=== PATIENT | male | born 1950 | race Hispanic/Latino ===

== ENCOUNTER 2020-01-06 11:16 | Inpatient (IN) | payer MEDICARE ==
[~2020-01-06] VITALS: Ht 157.5 cm; Wt 69.4 kg
[~2020-01-06 11:16] MED LIST: AMMO120C2 TP; ASPI-556 PO; ATOR40TA71 PO; BUSP15TA3 PO; CLOP75TA32 PO; FURO20TA6 PO; GABA-531 PO; IPRA3AMP24 IH; LOSA25TA41 PO; METO25TA6 PO; NYST30C TP; PANT40TA PO; PRED20B PO; SERT100T12 PO; VIT B12
[2020-01-06 12:00] LABS: ABG BASE EXCESS 1.5 mmol/L (-2.0-3.0); ABG HCO3 25.5 mmol/L (21.0-28.0); ABG OXYGEN SATURATION 92.9 % (95.0-99.0); ABG PCO2 38 mmHg (35-48)
[2020-01-06 12:02] LABS: BASOPHILS % (AUTO) 0.5 % (0.0-5.0); EOSINOPHILS % (AUTO) 6.4 % (0.0-8.0); HEMATOCRIT 41.1 % (42-54); LYMPHOCYTES % (AUTO) 17.7 % (21.0-51.0); MEAN CORPUSCULAR HEMOGLOBIN 32.2 pg (27.0-33.0); MEAN CORPUSCULAR HGB CONC 35.5 g/dL (32.0-36.0); MEAN CORPUSCULAR VOLUME 90.5 fL (79-99); MONOCYTES % (AUTO) 5.9 % (3.0-13.0); NEUTROPHILS % (AUTO) 69.3 % (40.0-77.0); PLATELET COUNT (AUTO) 196 K/uL (130-400); RED BLOOD CELL COUNT(AUTO) 4.54 MIL/uL (4.50-6.20); RED CELL DISTRIBUTION WIDTH 12.4 % (11.0-15.5); WHITE BLOOD COUNT (AUTO) 5.6 K/uL (4.8-10.8)
[2020-01-06 12:06] LABS: APPEARANCE,URINE Clear (CLEAR); BILIRUBIN,URINE Negative (NEGATIVE); COLOR,URINE Yellow (YELLOW); GLUCOSE, URINE (UA) Negative (NEGATIVE); KETONES,URINE Negative (NEGATIVE); LEUKOCYTE ESTERASE ,URINE Negative (NEGATIVE); NITRATE,URINE Negative (NEGATIVE); OCCULT BLOOD,URINE Negative (NEGATIVE); PH,URINE 8.5 (5.0-8.0); PROTEIN,URINE Negative (NEGATIVE); UROBILINOGEN,URINE 0.2 mg/dL (0.2-1.0)
[2020-01-06 12:14] LABS: ALBUMIN 3.7 g/dL (3.5-5.0); BILIRUBIN,TOTAL 0.6 mg/dL (0.2-1.0); CREATININE 0.7 mg/dL (0.5-1.5); POTASSIUM 3.5 mmol/L (3.5-5.1); TOTAL PROTEIN, SERUM 7.7 g/dL (6.0-8.3)
[2020-01-06 12:15] LABS: INR 0.96 (0.85-1.15); PARTIAL THROMBOPLASTIN TIME 29.4 SEC (26.3-35.5); PROTHROMBIN TIME 10.4 SEC (9.6-11.6)
[2020-01-06] MEDS ORDERED: ALBUTEROL INHALER 90MCG/INH IH ONE (13:05)
[2020-01-06] MEDS ORDERED: DEXAMETHASONE SOD PHOSPHATE 10MG/ML 1ML VIAL ONE (13:06)
[2020-01-06] MEDS ORDERED: IPRATROPIUM/ALBUTEROL SULFATE 3 ML SOLUTION IH ONE ×4 (13:21→21:45)
[2020-01-06] MEDS ORDERED: METHYLPREDNISOLONE SOD SUCC 40MG/ML 1ML ONE (14:32)
[2020-01-06] MEDS ORDERED: ENOXAPARIN SODIUM 40 MG/0.4 ML SYRINGE SQ ONE (14:32)
[2020-01-06] MEDS ORDERED: LEVOFLOXACIN 500 MG/D5W 100 ML 100 ML ONE (14:32)
[2020-01-06] MEDS ORDERED: PANTOPRAZOLE 40 MG/VIAL ONE (14:33)
[2020-01-06] MEDS: AZITHROMYCIN 500MG+NS 250ML 250 ML IV SCH (14:58)
[2020-01-06] MEDS ORDERED: CEFTRIAXONE SODIUM 1 GM IVP SCH (14:59)
[2020-01-06] MEDS ORDERED: CEFTRIAXONE SODIUM 1 GM ONE (16:06)
[2020-01-06] MEDS ORDERED: AZITHROMYCIN 500MG+NS 250ML 250 ML IV ONE (16:06)
[2020-01-06] MEDS ORDERED: ALBUTEROL INHALER 90MCG/INH IH PRN (18:00)
[2020-01-06 21:10] VITALS: BP 163/79
[2020-01-06] MEDS ORDERED: POTASSIUM CHLORIDE 20 MEQ ERTAB PO SCH (22:25)
[2020-01-06 23:31] VITALS: BP 161/76
[2020-01-07] MEDS: METHYLPREDNISOLONE SOD SUCC 40MG/ML 1ML IVP SCH ×3 (01:39→20:40)
[2020-01-07] MEDS ORDERED: IPRATROPIUM/ALBUTEROL SULFATE 3 ML SOLUTION IH ONE (02:03)
[2020-01-07 03:47] VITALS: BP 143/72
[2020-01-07 04:08] LABS: HEMATOCRIT 36.4 % (42-54); MEAN CORPUSCULAR HEMOGLOBIN 31.9 pg (27.0-33.0); MEAN CORPUSCULAR HGB CONC 35.4 g/dL (32.0-36.0); MEAN CORPUSCULAR VOLUME 90.1 fL (79-99); RED BLOOD CELL COUNT(AUTO) 4.04 MIL/uL (4.50-6.20); RED CELL DISTRIBUTION WIDTH 12.6 % (11.0-15.5); WHITE BLOOD COUNT (AUTO) 10.2 K/uL (4.8-10.8)
[2020-01-07 04:48] LABS: CREATININE 0.7 mg/dL (0.5-1.5); POTASSIUM 4.4 mmol/L (3.5-5.1); THYROID STIMULATING HORMONE 0.87 uIU/mL (0.36-3.74); URIC ACID 3.9 mg/dL (2.6-7.2)
[2020-01-07 09:59] VITALS: BP 146/67
[2020-01-07] MEDS: FAMOTIDINE/PF 20 MG/2 ML VIAL IV SCH (12:00)
[2020-01-07] MEDS: AZITHROMYCIN 500MG+NS 250ML 250 ML IV SCH (12:00)
[2020-01-07] MEDS: ENOXAPARIN SODIUM 40 MG/0.4 ML SYRINGE SQ SCH (12:00)
[2020-01-07 12:14] VITALS: BP 149/67
[2020-01-07] MEDS: IPRATROPIUM/ALBUTEROL SULFATE 3 ML SOLUTION IH PRN ×3 (15:13→23:46)
[2020-01-07 16:57] VITALS: BP 156/73
[2020-01-07 20:08] VITALS: BP 148/58
[2020-01-07] MEDS: CEFTRIAXONE SODIUM 1 GM IVP SCH (20:40)
[2020-01-07] MEDS: HONEY 1 APPL/ML TUBE TP SCH (20:40)
[2020-01-08] VITALS (7 sets, daily range): BP systolic 149–184; BP diastolic 68–81
[2020-01-08 05:48] LABS: HEMATOCRIT 37.4 % (42-54); LYMPHOCYTES % (AUTO) 6.9 % (21.0-51.0); MEAN CORPUSCULAR HGB CONC 34.8 g/dL (32.0-36.0); MEAN CORPUSCULAR VOLUME 92.1 fL (79-99); MONOCYTES % (AUTO) 3.4 % (3.0-13.0); NEUTROPHILS % (AUTO) 89.3 % (40.0-77.0); PLATELET COUNT (AUTO) 188 K/uL (130-400); RED BLOOD CELL COUNT(AUTO) 4.06 MIL/uL (4.50-6.20); RED CELL DISTRIBUTION WIDTH 12.9 % (11.0-15.5); WHITE BLOOD COUNT (AUTO) 11.9 K/uL (4.8-10.8)
[2020-01-08 06:12] LABS: CREATININE 0.7 mg/dL (0.5-1.5); POTASSIUM 4.5 mmol/L (3.5-5.1); THYROID STIMULATING HORMONE 0.91 uIU/mL (0.36-3.74); URIC ACID 3.2 mg/dL (2.6-7.2)
[2020-01-08] MEDS: IPRATROPIUM/ALBUTEROL SULFATE 3 ML SOLUTION IH PRN ×2 (06:55→11:22)
[2020-01-08] MEDS: AZITHROMYCIN 500MG+NS 250ML 250 ML IV SCH (10:59)
[2020-01-08] MEDS: FAMOTIDINE/PF 20 MG/2 ML VIAL IV SCH (11:00)
[2020-01-08] MEDS: METHYLPREDNISOLONE SOD SUCC 40MG/ML 1ML IVP SCH ×2 (11:00→20:54)
[2020-01-08] MEDS: ENOXAPARIN SODIUM 40 MG/0.4 ML SYRINGE SQ SCH (11:02)
[2020-01-08] MEDS: CEFTRIAXONE SODIUM 1 GM IVP SCH (20:53)
[2020-01-09] MEDS: IPRATROPIUM/ALBUTEROL SULFATE 3 ML SOLUTION IH PRN ×3 (00:40→11:54)
[2020-01-09 04:01] VITALS: BP 166/79
[2020-01-09] MEDS: AZITHROMYCIN 500MG+NS 250ML 250 ML IV SCH (08:51)
[2020-01-09] MEDS: METHYLPREDNISOLONE SOD SUCC 40MG/ML 1ML IVP SCH (08:51)
[2020-01-09] MEDS: FAMOTIDINE/PF 20 MG/2 ML VIAL IV SCH (08:51)
[2020-01-09 08:52] VITALS: BP 189/70
[2020-01-09] MEDS: ENOXAPARIN SODIUM 40 MG/0.4 ML SYRINGE SQ SCH (08:52)
[2020-01-09] MEDS ORDERED: LEVO500T89 PO (12:23)
[2020-01-09 12:29] VITALS: BP 183/61
[2020-01-09] MEDS: HONEY 1 APPL/ML TUBE TP SCH (14:54)
== END 2020-01-09 16:00 | disposition home or self-care (01) | DRG 190 ==
LOC: EDH 11:16 → EDHIP 14:11 → 3BH 20:21
PROVIDERS: ADMIT Internal Medicine Nephrology; ATTEND Internal Medicine Nephrology
DX: J44.0 Chronic obstructive pulmonary disease with (acute) lower respiratory infection (principal); J18.9 Pneumonia, unspecified organism; E87.1 Hypo-osmolality and hyponatremia; L97.919 Non-pressure chronic ulcer of unspecified part of right lower leg with unspecified severity; J44.1 Chronic obstructive pulmonary disease with (acute) exacerbation; F17.200 Nicotine dependence, unspecified, uncomplicated; I99.9 Unspecified disorder of circulatory system; I87.2 Venous insufficiency (chronic) (peripheral); E78.5 Hyperlipidemia, unspecified; I11.0 Hypertensive heart disease with heart failure; I50.9 Heart failure, unspecified; E11.622 Type 2 diabetes mellitus with other skin ulcer; F17.210 Nicotine dependence, cigarettes, uncomplicated; E78.00 Pure hypercholesterolemia, unspecified; E11.51 Type 2 diabetes mellitus with diabetic peripheral angiopathy without gangrene; Z20.828 Contact with and (suspected) exposure to other viral communicable diseases; Z71.6 Tobacco abuse counseling
CPT/HCPCS: 36415; 36600; 71045; 80048; 80053; 81003; 82550; 82803; 84443; 84484; 84550; 85025; 85027; 85610; 85730; 87040; 87426; 87804; 93005; 94640; 97039; C9113; G0378; J0456; J0696; J1100; J1650; J1956; J2920; J3490; U0003

== ENCOUNTER 2020-08-05 19:02 | Inpatient (IN) | payer MEDICARE ==
[~2020-08-05] VITALS: Ht 172.7 cm; Wt 65.1 kg
[~2020-08-05 19:02] MED LIST changes: +LEVO500T89 PO; +SERT-440 PO; -SERT100T12 PO
[2020-08-05 19:05] VITALS: BP 112/69
[2020-08-05] MEDS ORDERED: IPRATROPIUM/ALBUTEROL SULFATE 3 ML SOLUTION IH SCH (19:30)
[2020-08-05] MEDS ORDERED: SOLU-MEDROL 125MG VIAL IVP ONE (19:30)
[2020-08-05] MEDS ORDERED: ACETAMINOPHEN 160 MG/5ML UDCUP PO ONE (19:30)
[2020-08-05 20:02] LABS: BASOPHILS % (AUTO) 0.7 % (0.0-5.0); EOSINOPHILS % (AUTO) 2.2 % (0.0-8.0); HEMATOCRIT 36.3 % (42-54); LYMPHOCYTES % (AUTO) 6.3 % (21.0-51.0); MEAN CORPUSCULAR HEMOGLOBIN 30.8 pg (27.0-33.0); MEAN CORPUSCULAR HGB CONC 33.9 g/dL (32.0-36.0); MONOCYTES % (AUTO) 9.8 % (3.0-13.0); NEUTROPHILS % (AUTO) 80.6 % (40.0-77.0); PLATELET COUNT (AUTO) 368 K/uL (130-400); RED BLOOD CELL COUNT(AUTO) 3.99 MIL/uL (4.50-6.20); RED CELL DISTRIBUTION WIDTH 12.5 % (11.0-15.5); WHITE BLOOD COUNT (AUTO) 9.4 K/uL (4.8-10.8)
[2020-08-05] MEDS ORDERED: ACETAMINOPHEN 650 MG/20.3 ML UDCUP ONE (20:05)
[2020-08-05 20:10] LABS: CREATININE 1.1 mg/dL (0.5-1.5); POTASSIUM 4.4 mmol/L (3.5-5.1)
[2020-08-05 20:14] LABS: ALBUMIN 2.9 g/dL (3.5-5.0); BILIRUBIN,TOTAL 0.3 mg/dL (0.2-1.0); TOTAL PROTEIN, SERUM 7.4 g/dL (6.0-8.3)
[2020-08-05 20:15] LABS: INR 1.05 (0.85-1.15); PROTHROMBIN TIME 11.4 SEC (9.6-11.6)
[2020-08-05 20:17] LABS: PARTIAL THROMBOPLASTIN TIME 32.2 SEC (26.3-35.5)
[2020-08-05 20:34] LABS: B-TYPE NATRIURETIC PEPTIDE 98 pg/mL (0-100)
[2020-08-05] MEDS ORDERED: LEVOFLOXACIN 500 MG/D5W 100 ML 100 ML IV ONE (20:45)
[2020-08-05 20:53] LABS: ABG BASE EXCESS 2.2 mmol/L (-2.0-3.0); ABG HCO3 25.5 mmol/L (21.0-28.0); ABG OXYGEN SATURATION 92.9 % (95.0-99.0); ABG PCO2 36 mmHg (35-48)
[2020-08-05 21:05] VITALS: BP 147/82
[2020-08-05] MEDS ORDERED: ACETAMINOPHEN 650 MG SUPPOSITORY RC PRN (22:45)
[2020-08-05] MEDS ORDERED: ONDANSETRON 4MG INJ IVP PRN (22:45)
[2020-08-06] VITALS (10 sets, daily range): BP systolic 100–162; BP diastolic 60–78
[2020-08-06] MEDS: IPRATROPIUM/ALBUTEROL SULFATE 3 ML SOLUTION IH PRN ×2 (02:35→18:57)
[2020-08-06 03:32] LABS: APPEARANCE,URINE Clear (CLEAR); BILIRUBIN,URINE Negative (NEGATIVE); COLOR,URINE Yellow (YELLOW); GLUCOSE, URINE (UA) Negative (NEGATIVE); KETONES,URINE Negative (NEGATIVE); LEUKOCYTE ESTERASE ,URINE Negative (NEGATIVE); NITRATE,URINE Negative (NEGATIVE); OCCULT BLOOD,URINE Negative (NEGATIVE); PROTEIN,URINE Negative (NEGATIVE); UROBILINOGEN,URINE 0.2 mg/dL (0.2-1.0)
[2020-08-06 06:46] LABS: BASOPHILS % (AUTO) 0.2 % (0.0-5.0); HEMATOCRIT 31.2 % (42-54); LYMPHOCYTES % (AUTO) 4.9 % (21.0-51.0); MEAN CORPUSCULAR HEMOGLOBIN 31.7 pg (27.0-33.0); MEAN CORPUSCULAR HGB CONC 34.9 g/dL (32.0-36.0); MEAN CORPUSCULAR VOLUME 90.7 fL (79-99); MONOCYTES % (AUTO) 1.8 % (3.0-13.0); NEUTROPHILS % (AUTO) 92.7 % (40.0-77.0); PLATELET COUNT (AUTO) 307 K/uL (130-400); RED BLOOD CELL COUNT(AUTO) 3.44 MIL/uL (4.50-6.20); RED CELL DISTRIBUTION WIDTH 12.4 % (11.0-15.5); WHITE BLOOD COUNT (AUTO) 5.6 K/uL (4.8-10.8)
[2020-08-06 07:09] LABS: ALBUMIN 2.4 g/dL (3.5-5.0); PHOSPHORUS 3.6 mg/dL (2.5-4.9); POTASSIUM 4.1 mmol/L (3.5-5.1)
[2020-08-06 07:18] LABS: BILIRUBIN,TOTAL 0.1 mg/dL (0.2-1.0); MAGNESIUM 1.7 mg/dL (1.80-2.40); THYROID STIMULATING HORMONE 1.44 uIU/mL (0.36-3.74); TOTAL PROTEIN, SERUM 6.5 g/dL (6.0-8.3); URIC ACID 8.6 mg/dL (2.6-7.2)
[2020-08-06] MEDS ORDERED: TAMS-1 PO (07:57)
[2020-08-06] MEDS ORDERED: GABA300S PO (07:57)
[2020-08-06] MEDS ORDERED: HYDR-3421 PO (07:57)
[2020-08-06] MEDS ORDERED: FURO40TA5 PO (07:57)
[2020-08-06] MEDS ORDERED: FLUT110HFA IH (08:14)
[2020-08-06] MEDS ORDERED: LEVOFLOXACIN 500 MG/D5W 100 ML 100 ML IV SCH (09:00)
[2020-08-06] MEDS: PANTOPRAZOLE 40 MG/VIAL IVP SCH (09:31)
[2020-08-06] MEDS: SOLU-MEDROL 40MG VIAL IVP SCH ×2 (09:32→21:07)
[2020-08-06] MEDS ORDERED: TRAMADOL HCL 50 MG TABLET ONE (09:43)
[2020-08-06] MEDS ORDERED: AZITHROMYCIN 500MG VIAL IVPB SCH (21:30)
[2020-08-06] MEDS ORDERED: 0.9% NACL 250ML IVPB SCH (21:30)
[2020-08-06] MEDS ORDERED: PHARMACY COMMUNICATION MISC SCH (22:00)
[2020-08-07] MEDS: AZITHROMYCIN 500MG+NS 250ML 250 ML IV SCH ×2 (00:18→20:13)
[2020-08-07 04:22] VITALS: BP 120/69
[2020-08-07] MEDS: IPRATROPIUM/ALBUTEROL SULFATE 3 ML SOLUTION IH PRN ×3 (06:56→21:05)
[2020-08-07 07:57] VITALS: BP 119/60
[2020-08-07] MEDS: PANTOPRAZOLE 40 MG/VIAL IVP SCH (10:02)
[2020-08-07] MEDS: SOLU-MEDROL 40MG VIAL IVP SCH ×2 (10:02→20:13)
[2020-08-07 11:00] VITALS: BP 151/63
[2020-08-07] MEDS: NICOTINE 14 MG/ 24 HR PATCH TD SCH (11:54)
[2020-08-07 16:00] VITALS: BP 127/60
[2020-08-07 20:07] VITALS: BP 140/70
[2020-08-07] MEDS: TRAMADOL HCL 50 MG TABLET PO PRN (20:13)
[2020-08-08] VITALS (8 sets, daily range): BP systolic 119–149; BP diastolic 50–79
[2020-08-08 04:35] LABS: HEMATOCRIT 30.1 % (42-54); MEAN CORPUSCULAR HEMOGLOBIN 31.3 pg (27.0-33.0); MEAN CORPUSCULAR HGB CONC 33.9 g/dL (32.0-36.0); MEAN CORPUSCULAR VOLUME 92.3 fL (79-99); RED BLOOD CELL COUNT(AUTO) 3.26 MIL/uL (4.50-6.20); RED CELL DISTRIBUTION WIDTH 12.6 % (11.0-15.5); WHITE BLOOD COUNT (AUTO) 6.6 K/uL (4.8-10.8)
[2020-08-08 04:58] LABS: CREATININE 0.6 mg/dL (0.5-1.5); POTASSIUM 4.2 mmol/L (3.5-5.1)
[2020-08-08] MEDS: PANTOPRAZOLE 40 MG/VIAL IVP SCH (09:22)
[2020-08-08] MEDS: SOLU-MEDROL 40MG VIAL IVP SCH (09:22)
[2020-08-08] MEDS: TRAMADOL HCL 50 MG TABLET PO PRN ×2 (09:47→20:03)
[2020-08-08] MEDS: NICOTINE 14 MG/ 24 HR PATCH TD SCH (13:31)
[2020-08-08] MEDS: IPRATROPIUM/ALBUTEROL SULFATE 3 ML SOLUTION IH PRN ×2 (18:44→22:09)
[2020-08-08] MEDS: AZITHROMYCIN 500MG+NS 250ML 250 ML IV SCH (20:03)
[2020-08-08] MEDS: BUSPIRONE HCL 5 MG TABLET PO SCH (20:03)
[2020-08-08] MEDS ORDERED: SOLU-MEDROL 40MG VIAL IVP ONE (21:00)
[2020-08-09] MEDS: IPRATROPIUM/ALBUTEROL SULFATE 3 ML SOLUTION IH PRN ×2 (02:43→06:16)
[2020-08-09 03:40] VITALS: BP 141/57
[2020-08-09 05:00] LABS: HEMATOCRIT 32.3 % (42-54); MEAN CORPUSCULAR HEMOGLOBIN 31.4 pg (27.0-33.0); MEAN CORPUSCULAR HGB CONC 33.1 g/dL (32.0-36.0); MEAN CORPUSCULAR VOLUME 94.7 fL (79-99); RED BLOOD CELL COUNT(AUTO) 3.41 MIL/uL (4.50-6.20); RED CELL DISTRIBUTION WIDTH 12.6 % (11.0-15.5); WHITE BLOOD COUNT (AUTO) 5.7 K/uL (4.8-10.8)
[2020-08-09 05:20] LABS: CREATININE 0.8 mg/dL (0.5-1.5); MAGNESIUM 1.7 mg/dL (1.80-2.40); PHOSPHORUS 2.9 mg/dL (2.5-4.9); POTASSIUM 3.9 mmol/L (3.5-5.1)
[2020-08-09 08:00] VITALS: BP 123/51
[2020-08-09] MEDS: BUSPIRONE HCL 5 MG TABLET PO SCH ×2 (09:14→20:13)
[2020-08-09] MEDS: NICOTINE 14 MG/ 24 HR PATCH TD SCH (09:15)
[2020-08-09] MEDS: PREDNISONE 20 MG TABLET PO SCH (09:15)
[2020-08-09] MEDS: PANTOPRAZOLE 40 MG/VIAL IVP SCH (09:15)
[2020-08-09] MEDS: TRAMADOL HCL 50 MG TABLET PO PRN ×2 (09:43→23:52)
[2020-08-09 12:00] VITALS: BP 141/66
[2020-08-09 16:00] VITALS: BP 166/58
[2020-08-09 20:53] VITALS: BP 163/79
[2020-08-09] MEDS: AZITHROMYCIN 500MG+NS 250ML 250 ML IV SCH (22:04)
[2020-08-10] VITALS (8 sets, daily range): BP systolic 111–173; BP diastolic 60–75
[2020-08-10] MEDS ORDERED: HYDROMORPHONE 0.5 MG SYG (0.5MG/0.5ML) ONE (03:29)
[2020-08-10] MEDS: HYDROMORPHONE 0.5 MG SYG (0.5MG/0.5ML) IVP PRN (03:31)
[2020-08-10 05:18] LABS: HEMATOCRIT 33.7 % (42-54); MEAN CORPUSCULAR HEMOGLOBIN 31.1 pg (27.0-33.0); MEAN CORPUSCULAR HGB CONC 34.1 g/dL (32.0-36.0); MEAN CORPUSCULAR VOLUME 91.1 fL (79-99); PLATELET COUNT (AUTO) 345 K/uL (130-400); RED CELL DISTRIBUTION WIDTH 12.5 % (11.0-15.5)
[2020-08-10 05:25] LABS: CREATININE 0.6 mg/dL (0.5-1.5); MAGNESIUM 1.6 mg/dL (1.80-2.40); PHOSPHORUS 2.4 mg/dL (2.5-4.9); POTASSIUM 3.1 mmol/L (3.5-5.1)
[2020-08-10 06:07] LABS: BAND NEUTROPHILS % (MANUAL) 1 % (0-2); LYMPHOCYTES % (MANUAL) 16 % (22-44); MAN.DIFF COMMENT-IMPRESSION MANUAL DIFFERENTIAL; MONOCYTES % (MANUAL) 7 % (2-9); SEGMENTED NEUTROPHILS % 76 % (40-70)
[2020-08-10 06:08] LABS: PLATELET MORPHOLOGY COMMENT ADEQUATE
[2020-08-10] MEDS: IPRATROPIUM/ALBUTEROL SULFATE 3 ML SOLUTION IH PRN (07:04)
[2020-08-10] MEDS: NICOTINE 14 MG/ 24 HR PATCH TD SCH (10:11)
[2020-08-10] MEDS: PANTOPRAZOLE 40 MG/VIAL IVP SCH (10:11)
[2020-08-10] MEDS: PREDNISONE 20 MG TABLET PO SCH (10:12)
[2020-08-10] MEDS: BUSPIRONE HCL 5 MG TABLET PO SCH ×2 (10:12→19:49)
[2020-08-10] MEDS: TRAMADOL HCL 50 MG TABLET PO PRN (10:12)
[2020-08-10] MEDS: ACETAMINOPHEN 325 MG TAB PO PRN (13:38)
[2020-08-10] MEDS ORDERED: KCL 20 MEQ ERTAB PO ONE (16:39)
[2020-08-10] MEDS ORDERED: MAGNESIUM 2GM PREMIX 50ML 50 ML IV ONE (16:40)
[2020-08-10] MEDS ORDERED: POTASSIUM CHLORIDE 20MEQ/100ML 100 ML IV PRN (17:00)
[2020-08-10] MEDS ORDERED: LIDOCAINE HCL-MPF 1% 2ML VIAL IV PRN (17:00)
[2020-08-10] MEDS ORDERED: POTASSIUM CHLORIDE 10% ELIXIR 20 MEQ/15 ML UDCUP PO PRN (17:00)
[2020-08-10] MEDS ORDERED: MAGNESIUM 2GM PREMIX 50ML 50 ML IV SCH (17:00)
[2020-08-10] MEDS: KCL 20 MEQ ERTAB PO PRN ×3 (18:55→19:50)
[2020-08-10] MEDS: AZITHROMYCIN 500MG+NS 250ML 250 ML IV SCH (21:16)
[2020-08-11] MEDS: HYDROMORPHONE 0.5 MG SYG (0.5MG/0.5ML) IVP PRN ×3 (01:52→20:41)
[2020-08-11 03:00] VITALS: BP 125/74
[2020-08-11 04:05] LABS: HEMATOCRIT 32.4 % (42-54); MEAN CORPUSCULAR HEMOGLOBIN 30.9 pg (27.0-33.0); MEAN CORPUSCULAR VOLUME 93.6 fL (79-99); PLATELET COUNT (AUTO) 326 K/uL (130-400); RED BLOOD CELL COUNT(AUTO) 3.46 MIL/uL (4.50-6.20); RED CELL DISTRIBUTION WIDTH 12.6 % (11.0-15.5); WHITE BLOOD COUNT (AUTO) 6.5 K/uL (4.8-10.8)
[2020-08-11 04:22] LABS: CREATININE 0.6 mg/dL (0.5-1.5); MAGNESIUM 1.8 mg/dL (1.80-2.40); PHOSPHORUS 2.9 mg/dL (2.5-4.9); POTASSIUM 3.9 mmol/L (3.5-5.1)
[2020-08-11 05:23] LABS: BAND NEUTROPHILS % (MANUAL) 2 % (0-2); EOSINOPHILS % (MANUAL) 1 % (1-6); LYMPHOCYTES % (MANUAL) 9 % (22-44); MAN.DIFF COMMENT-IMPRESSION MANUAL DIFFERENTIAL; MONOCYTES % (MANUAL) 4 % (2-9); REACTIVE LYMPHOCYTES 3 % (0-0); SEGMENTED NEUTROPHILS % 81 % (40-70)
[2020-08-11] MEDS: PANTOPRAZOLE 40 MG/VIAL IVP SCH (07:59)
[2020-08-11] MEDS: TRAMADOL HCL 50 MG TABLET PO PRN ×2 (08:01→19:07)
[2020-08-11] MEDS: BUSPIRONE HCL 5 MG TABLET PO SCH ×2 (08:01→20:35)
[2020-08-11] MEDS: PREDNISONE 20 MG TABLET PO SCH (08:02)
[2020-08-11 08:19] VITALS: BP 151/78
[2020-08-11] MEDS: NICOTINE 14 MG/ 24 HR PATCH TD SCH (09:55)
[2020-08-11 11:29] VITALS: BP 159/71
[2020-08-11] MEDS: ACETAMINOPHEN 325 MG TAB PO PRN (13:32)
[2020-08-11 17:22] VITALS: BP 152/71
[2020-08-11 19:48] VITALS: BP 176/58
[2020-08-11] MEDS: IPRATROPIUM/ALBUTEROL SULFATE 3 ML SOLUTION IH PRN (20:02)
[2020-08-11] MEDS: AZITHROMYCIN 500MG+NS 250ML 250 ML IV SCH (20:34)
[2020-08-11 23:41] VITALS: BP 169/76
[2020-08-12 04:27] VITALS: BP 127/69
[2020-08-12 08:29] VITALS: BP 136/61
[2020-08-12] MEDS: PREDNISONE 20 MG TABLET PO SCH (10:30)
[2020-08-12] MEDS: TRAMADOL HCL 50 MG TABLET PO PRN ×2 (10:30→20:07)
[2020-08-12] MEDS: BUSPIRONE HCL 5 MG TABLET PO SCH ×2 (10:30→20:08)
[2020-08-12] MEDS: PANTOPRAZOLE 40 MG/VIAL IVP SCH (10:30)
[2020-08-12] MEDS: NICOTINE 14 MG/ 24 HR PATCH TD SCH (10:31)
[2020-08-12 11:17] VITALS: BP 121/64
[2020-08-12 16:13] VITALS: BP 131/65
[2020-08-12 19:51] VITALS: BP 103/67
[2020-08-12] MEDS: AZITHROMYCIN 500MG+NS 250ML 250 ML IV SCH (20:08)
[2020-08-12] MEDS: IPRATROPIUM/ALBUTEROL SULFATE 3 ML SOLUTION IH PRN (20:31)
[2020-08-12 23:47] VITALS: BP 148/74
[2020-08-13 04:28] VITALS: BP 146/74
[2020-08-13 08:00] VITALS: BP 125/72
[2020-08-13] MEDS: PREDNISONE 20 MG TABLET PO SCH (09:18)
[2020-08-13] MEDS: BUSPIRONE HCL 5 MG TABLET PO SCH (09:18)
[2020-08-13] MEDS: TRAMADOL HCL 50 MG TABLET PO PRN (09:18)
[2020-08-13] MEDS: NICOTINE 14 MG/ 24 HR PATCH TD SCH (09:18)
[2020-08-13] MEDS: PANTOPRAZOLE 40 MG/VIAL IVP SCH (09:18)
[2020-08-13] MEDS ORDERED: HYDR-4060 PO (09:20)
[2020-08-13] MEDS ORDERED: PRED20TA3 PO (12:06)
[2020-08-13] MEDS ORDERED: AZIT500T4 PO (12:06)
== END 2020-08-13 15:13 | disposition home health service (06) | DRG 193 ==
LOC: EDH 19:02 → EDHIP 20:00 → 4BH 08-06 15:20 → EDHIP 08-06 16:56 → 4BH 08-06 21:52
PROVIDERS: ADMIT Internal Medicine Nephrology; ATTEND Internal Medicine Nephrology
DX: J18.9 Pneumonia, unspecified organism (principal); I46.9 Cardiac arrest, cause unspecified; R65.11 Systemic inflammatory response syndrome (SIRS) of non-infectious origin with acute organ dysfunction; J44.0 Chronic obstructive pulmonary disease with (acute) lower respiratory infection; E87.1 Hypo-osmolality and hyponatremia; J44.1 Chronic obstructive pulmonary disease with (acute) exacerbation; N17.9 Acute kidney failure, unspecified; I44.1 Atrioventricular block, second degree; E11.51 Type 2 diabetes mellitus with diabetic peripheral angiopathy without gangrene; I50.9 Heart failure, unspecified; E78.5 Hyperlipidemia, unspecified; F10.10 Alcohol abuse, uncomplicated; I89.0 Lymphedema, not elsewhere classified; Z72.0 Tobacco use; Z79.899 Other long term (current) drug therapy; Z79.02 Long term (current) use of antithrombotics/antiplatelets; Z95.5 Presence of coronary angioplasty implant and graft; I25.10 Atherosclerotic heart disease of native coronary artery without angina pectoris; R09.02 Hypoxemia; R94.4 Abnormal results of kidney function studies; R00.1 Bradycardia, unspecified; R53.81 Other malaise; N28.9 Disorder of kidney and ureter, unspecified
CPT/HCPCS: 36415; 36600; 71045; 80048; 80053; 81003; 82550; 82803; 82948; 83605; 83735; 83880; 84100; 84443; 84484; 84550; 85025; 85027; 85610; 85730; 87040; 87804; 93005; 93970; 94640; 94664; 94760; 97039; C9113; G0378; J0456; J1170; J1956; J2920; J2930; J3475

== ENCOUNTER 2020-10-30 16:06 | Inpatient (IN) | payer MEDICARE ==
[~2020-10-30] VITALS: Ht 172.7 cm; Wt 66.5 kg
[~2020-10-30 16:06] MED LIST changes: +AZIT500T4 PO; +FLUT110HFA IH; -FURO20TA6 PO; +FURO40TA5 PO; -GABA-531 PO; +GABA300S PO; +HYDR-3421 PO; +HYDR-4060 PO; -IPRA3AMP24 IH; -LEVO500T89 PO; -NYST30C TP; -PANT40TA PO; -PRED20B PO; +PRED20TA3 PO; +TAMS-1 PO
[2020-10-30 16:16] VITALS: BP 151/82
[2020-10-30] MEDS ORDERED: IPRATROPIUM/ALBUTEROL SULFATE 3 ML SOLUTION IH ONE (16:30)
[2020-10-30] MEDS ORDERED: ALBUTEROL 0.083% 2.5 MG/3 ML INH IH ONE (16:47)
[2020-10-30 16:57] LABS: BASOPHILS % (AUTO) 0.6 % (0.0-5.0); EOSINOPHILS % (AUTO) 1.6 % (0.0-8.0); LYMPHOCYTES % (AUTO) 5.7 % (21.0-51.0); MEAN CORPUSCULAR HEMOGLOBIN 30.3 pg (27.0-33.0); MEAN CORPUSCULAR HGB CONC 34.6 g/dL (32.0-36.0); MEAN CORPUSCULAR VOLUME 87.7 fL (79-99); NEUTROPHILS % (AUTO) 84.7 % (40.0-77.0); PLATELET COUNT (AUTO) 429 K/uL (130-400); RED BLOOD CELL COUNT(AUTO) 4.22 MIL/uL (4.50-6.20); RED CELL DISTRIBUTION WIDTH 14.3 % (11.0-15.5); WHITE BLOOD COUNT (AUTO) 13.4 K/uL (4.8-10.8)
[2020-10-30 17:17] LABS: CREATININE 0.8 mg/dL (0.5-1.5); POTASSIUM 3.2 mmol/L (3.5-5.1)
[2020-10-30 17:18] LABS: B-TYPE NATRIURETIC PEPTIDE 145 pg/mL (0-100)
[2020-10-30 17:19] LABS: ALBUMIN 2.1 g/dL (3.5-5.0); BILIRUBIN,TOTAL 0.2 mg/dL (0.2-1.0); CRP QUANTITATIVE 37.7 mg/L (0.00-9.0); TOTAL PROTEIN, SERUM 6.9 g/dL (6.0-8.3)
[2020-10-30] MEDS ORDERED: POTASSIUM BICARB/CIT AC 25 MEQ TABLET.EFF PO ONE (17:30)
[2020-10-30] MEDS ORDERED: CEFTRIAXONE 1G VIAL IVP ONE (17:30)
[2020-10-30] MEDS ORDERED: FLUCONAZOLE 100 MG TAB PO ONE (18:00)
[2020-10-30 18:28] VITALS: BP 176/68
[2020-10-30] MEDS ORDERED: CEFTRIAXONE 1G VIAL ONE (18:44)
[2020-10-30] MEDS ORDERED: POTASSIUM BICARB/CIT AC 25 MEQ TABLET.EFF ONE (18:44)
[2020-10-30] MEDS ORDERED: ONDANSETRON 4MG INJ IVP PRN (19:00)
[2020-10-30] MEDS ORDERED: KCL 20 MEQ ERTAB PO PRN (19:00)
[2020-10-30 19:39] VITALS: BP 176/82
[2020-10-30] MEDS ORDERED: NITR0.4T50 SL (20:14)
[2020-10-30] MEDS ORDERED: FUROSEMIDE 40MG VIAL ONE (20:50)
[2020-10-30] MEDS: 0.9%NACL 50ML 50 ML IV SCH (20:55)
[2020-10-30] MEDS: SOLU-MEDROL 40MG VIAL IVP SCH (20:55)
[2020-10-30] MEDS: ZOSYN 3.375GM +NS 50ML IV SCH (20:55)
[2020-10-30] MEDS: GABAPENTIN 300 MG CAPSULE PO SCH (20:55)
[2020-10-30] MEDS: FUROSEMIDE 40MG VIAL IV SCH (21:08)
[2020-10-30] MEDS: BUSPIRONE HCL 5 MG TABLET PO SCH (21:08)
[2020-10-30] MEDS ORDERED: AMLODIPINE 5 MG TAB PO ONE (21:30)
[2020-10-30] MEDS: AZITHROMYCIN 500MG+NS 250ML IV SCH (21:49)
[2020-10-30] MEDS: 0.9% NACL 250ML 250 ML IV SCH (21:49)
[2020-10-30 22:25] VITALS: BP 156/55
[2020-10-31] VITALS (8 sets, daily range): BP systolic 104–166; BP diastolic 42–75
[2020-10-31] MEDS: ZOSYN 3.375GM +NS 50ML IV SCH ×3 (04:01→18:00)
[2020-10-31] MEDS: 0.9%NACL 50ML 50 ML IV SCH ×3 (04:02→18:00)
[2020-10-31 06:30] LABS: BASOPHILS % (AUTO) 0.1 % (0.0-5.0); EOSINOPHILS % (AUTO) 1.9 % (0.0-8.0); HEMATOCRIT 35.7 % (42-54); LYMPHOCYTES % (AUTO) 7.2 % (21.0-51.0); MEAN CORPUSCULAR HEMOGLOBIN 29.8 pg (27.0-33.0); MEAN CORPUSCULAR HGB CONC 33.3 g/dL (32.0-36.0); MEAN CORPUSCULAR VOLUME 89.3 fL (79-99); MONOCYTES % (AUTO) 1.1 % (3.0-13.0); NEUTROPHILS % (AUTO) 89.3 % (40.0-77.0); PLATELET COUNT (AUTO) 396 K/uL (130-400); RED CELL DISTRIBUTION WIDTH 14.6 % (11.0-15.5); WHITE BLOOD COUNT (AUTO) 7.9 K/uL (4.8-10.8)
[2020-10-31 06:54] LABS: ALBUMIN 1.9 g/dL (3.5-5.0); BILIRUBIN,TOTAL 0.2 mg/dL (0.2-1.0); CREATININE 1.1 mg/dL (0.5-1.5); MAGNESIUM 1.4 mg/dL (1.80-2.40); PHOSPHORUS 4.1 mg/dL (2.5-4.9); POTASSIUM 4.4 mmol/L (3.5-5.1); THYROID STIMULATING HORMONE 1.09 uIU/mL (0.36-3.74); TOTAL PROTEIN, SERUM 6.4 g/dL (6.0-8.3); URIC ACID 9.8 mg/dL (2.6-7.2)
[2020-10-31] MEDS: METOPROLOL TARTRATE 25 MG TAB PO SCH (08:40)
[2020-10-31] MEDS: ENOXAPARIN SODIUM 40 MG/0.4 ML SYRINGE SQ SCH (08:40)
[2020-10-31] MEDS: PANTOPRAZOLE 40 MG TAB DR PO SCH (08:40)
[2020-10-31] MEDS: SOLU-MEDROL 40MG VIAL IVP SCH ×2 (08:40→21:57)
[2020-10-31] MEDS: ASPIRIN 81 MG EC TAB PO SCH (08:40)
[2020-10-31] MEDS: CLOPIDOGREL 75MG TAB PO SCH (08:40)
[2020-10-31] MEDS: GABAPENTIN 300 MG CAPSULE PO SCH ×2 (08:40→21:00)
[2020-10-31] MEDS: FUROSEMIDE 40MG VIAL IV SCH ×2 (08:40→21:56)
[2020-10-31] MEDS: BUSPIRONE HCL 5 MG TABLET PO SCH ×2 (08:40→21:57)
[2020-10-31] MEDS: ALBUTEROL 0.042% 1.25MG/3ML IH SCH ×2 (21:53→21:54)
[2020-10-31] MEDS: AZITHROMYCIN 500MG+NS 250ML IV SCH (21:56)
[2020-10-31] MEDS: 0.9% NACL 250ML 250 ML IV SCH (21:56)
[2020-11-01] VITALS (8 sets, daily range): BP systolic 101–144; BP diastolic 52–74
[2020-11-01] MEDS: ZOSYN 3.375GM +NS 50ML IV SCH ×3 (00:48→18:05)
[2020-11-01] MEDS: 0.9%NACL 50ML 50 ML IV SCH ×3 (00:49→18:05)
[2020-11-01] MEDS: ALBUTEROL 0.042% 1.25MG/3ML IH SCH ×4 (01:47→14:20)
[2020-11-01] MEDS: ACETAMINOPHEN 325 MG TAB PO PRN (04:17)
[2020-11-01 06:18] LABS: BASOPHILS % (AUTO) 0.1 % (0.0-5.0); EOSINOPHILS % (AUTO) 0.1 % (0.0-8.0); HEMATOCRIT 31.4 % (42-54); LYMPHOCYTES % (AUTO) 7.2 % (21.0-51.0); MEAN CORPUSCULAR HEMOGLOBIN 29.7 pg (27.0-33.0); MEAN CORPUSCULAR HGB CONC 33.4 g/dL (32.0-36.0); MEAN CORPUSCULAR VOLUME 88.7 fL (79-99); MONOCYTES % (AUTO) 6.8 % (3.0-13.0); NEUTROPHILS % (AUTO) 85.4 % (40.0-77.0); PLATELET COUNT (AUTO) 357 K/uL (130-400); RED BLOOD CELL COUNT(AUTO) 3.54 MIL/uL (4.50-6.20); RED CELL DISTRIBUTION WIDTH 14.4 % (11.0-15.5); WHITE BLOOD COUNT (AUTO) 11.9 K/uL (4.8-10.8)
[2020-11-01 06:49] LABS: ALBUMIN 1.8 g/dL (3.5-5.0); BILIRUBIN,TOTAL 0.2 mg/dL (0.2-1.0); CREATININE 1.1 mg/dL (0.5-1.5); MAGNESIUM 1.5 mg/dL (1.80-2.40); PHOSPHORUS 3.2 mg/dL (2.5-4.9); POTASSIUM 3.3 mmol/L (3.5-5.1); TOTAL PROTEIN, SERUM 5.5 g/dL (6.0-8.3)
[2020-11-01] MEDS: LIDOCAINE HCL-MPF 1% 2ML VIAL IJ PRN (07:01)
[2020-11-01] MEDS: POTASSIUM CHLORIDE 20MEQ/100ML 100 ML IV PRN ×2 (07:01→13:22)
[2020-11-01] MEDS: SOLU-MEDROL 40MG VIAL IVP SCH ×3 (10:07→20:54)
[2020-11-01] MEDS: FUROSEMIDE 40MG VIAL IV SCH ×2 (10:07→20:38)
[2020-11-01] MEDS: ENOXAPARIN SODIUM 40 MG/0.4 ML SYRINGE SQ SCH (10:07)
[2020-11-01] MEDS: CLOPIDOGREL 75MG TAB PO SCH (10:08)
[2020-11-01] MEDS: BUSPIRONE HCL 5 MG TABLET PO SCH ×2 (10:08→20:37)
[2020-11-01] MEDS: GABAPENTIN 300 MG CAPSULE PO SCH ×3 (10:08→20:37)
[2020-11-01] MEDS: PANTOPRAZOLE 40 MG TAB DR PO SCH (10:08)
[2020-11-01] MEDS: ASPIRIN 81 MG EC TAB PO SCH (10:08)
[2020-11-01] MEDS: METOPROLOL TARTRATE 25 MG TAB PO SCH (10:08)
[2020-11-01] MEDS: POTASSIUM CHLORIDE 10% ELIXIR 20 MEQ/15 ML UDCUP PO PRN (13:32)
[2020-11-01] MEDS: IPRATROPIUM 0.5 MG/2.5 ML INH IH SCH (19:18)
[2020-11-01] MEDS: POTASSIUM CHLORIDE 10% ELIXIR 20 MEQ/15 ML UDCUP PO SCH (20:38)
[2020-11-01] MEDS: AZITHROMYCIN 500MG+NS 250ML IV SCH (20:38)
[2020-11-01] MEDS: 0.9% NACL 250ML 250 ML IV SCH (20:38)
[2020-11-01] MEDS ORDERED: MAGNESIUM 2GM PREMIX 50ML 50 ML IV SCH (22:30)
[2020-11-01] MEDS: MAGNESIUM 2GM PREMIX 50ML 50 ML IV SCH (23:59)
[2020-11-02] VITALS (7 sets, daily range): BP systolic 122–151; BP diastolic 47–101
[2020-11-02] MEDS: IPRATROPIUM 0.5 MG/2.5 ML INH IH SCH ×5 (00:10→23:18)
[2020-11-02] MEDS: 0.9%NACL 50ML 50 ML IV SCH ×3 (01:33→17:51)
[2020-11-02] MEDS: ZOSYN 3.375GM +NS 50ML IV SCH ×3 (01:33→17:51)
[2020-11-02 05:54] LABS: CREATININE 0.8 mg/dL (0.5-1.5); PHOSPHORUS 1.9 mg/dL (2.5-4.9)
[2020-11-02] MEDS: POTASSIUM CHLORIDE 10% ELIXIR 20 MEQ/15 ML UDCUP PO PRN (06:46)
[2020-11-02] MEDS: LIDOCAINE HCL-MPF 1% 2ML VIAL IJ PRN (06:50)
[2020-11-02] MEDS: POTASSIUM CHLORIDE 20MEQ/100ML 100 ML IV PRN (06:50)
[2020-11-02] MEDS: SOLU-MEDROL 40MG VIAL IVP SCH ×2 (09:08→21:35)
[2020-11-02] MEDS: ASPIRIN 81 MG EC TAB PO SCH (09:08)
[2020-11-02] MEDS: FUROSEMIDE 40MG VIAL IV SCH ×2 (09:08→21:36)
[2020-11-02] MEDS: GABAPENTIN 300 MG CAPSULE PO SCH ×3 (09:08→21:37)
[2020-11-02] MEDS: BUSPIRONE HCL 5 MG TABLET PO SCH ×2 (09:09→21:37)
[2020-11-02] MEDS: CLOPIDOGREL 75MG TAB PO SCH (09:09)
[2020-11-02] MEDS: PANTOPRAZOLE 40 MG TAB DR PO SCH (09:09)
[2020-11-02] MEDS: ENOXAPARIN SODIUM 40 MG/0.4 ML SYRINGE SQ SCH (09:10)
[2020-11-02] MEDS: POTASSIUM CHLORIDE 10% ELIXIR 20 MEQ/15 ML UDCUP PO SCH ×2 (09:11→21:37)
[2020-11-02] MEDS ORDERED: IOHEXOL 350 MG/ML 100ML INFUS..BTL IV ONE (14:15)
[2020-11-02] MEDS ORDERED: IOHEXOL-350 50ML VIAL IV ONE (14:15)
[2020-11-02] MEDS: ACETAMINOPHEN 325 MG TAB PO PRN (17:55)
[2020-11-02] MEDS: AZITHROMYCIN 500MG+NS 250ML IV SCH (21:38)
[2020-11-02] MEDS: 0.9% NACL 250ML 250 ML IV SCH (21:38)
[2020-11-03] MEDS: ZOSYN 3.375GM +NS 50ML IV SCH ×3 (02:37→18:13)
[2020-11-03] MEDS: 0.9%NACL 50ML 50 ML IV SCH ×3 (02:37→18:14)
[2020-11-03] MEDS: ACETAMINOPHEN 325 MG TAB PO PRN ×2 (02:37→21:49)
[2020-11-03 04:11] VITALS: BP 134/49
[2020-11-03 04:44] LABS: HEMATOCRIT 32.2 % (42-54); MEAN CORPUSCULAR HEMOGLOBIN 29.5 pg (27.0-33.0); MEAN CORPUSCULAR HGB CONC 32.9 g/dL (32.0-36.0); MEAN CORPUSCULAR VOLUME 89.7 fL (79-99); RED BLOOD CELL COUNT(AUTO) 3.59 MIL/uL (4.50-6.20); RED CELL DISTRIBUTION WIDTH 14.6 % (11.0-15.5); WHITE BLOOD COUNT (AUTO) 8.5 K/uL (4.8-10.8)
[2020-11-03 04:55] LABS: CREATININE 0.8 mg/dL (0.5-1.5); MAGNESIUM 1.5 mg/dL (1.80-2.40); PHOSPHORUS 2.6 mg/dL (2.5-4.9); POTASSIUM 3.5 mmol/L (3.5-5.1)
[2020-11-03] MEDS: IPRATROPIUM 0.5 MG/2.5 ML INH IH SCH ×3 (06:24→18:21)
[2020-11-03 08:19] VITALS: BP 158/59
[2020-11-03] MEDS: ASPIRIN 81 MG EC TAB PO SCH (09:07)
[2020-11-03] MEDS: PANTOPRAZOLE 40 MG TAB DR PO SCH (09:07)
[2020-11-03] MEDS: CLOPIDOGREL 75MG TAB PO SCH (09:07)
[2020-11-03] MEDS: POTASSIUM CHLORIDE 10% ELIXIR 20 MEQ/15 ML UDCUP PO SCH ×2 (09:08→21:48)
[2020-11-03] MEDS: BUSPIRONE HCL 5 MG TABLET PO SCH ×2 (09:08→21:48)
[2020-11-03] MEDS: GABAPENTIN 300 MG CAPSULE PO SCH ×3 (09:08→21:49)
[2020-11-03] MEDS: ENOXAPARIN SODIUM 40 MG/0.4 ML SYRINGE SQ SCH (09:09)
[2020-11-03] MEDS: FUROSEMIDE 40MG VIAL IV SCH ×2 (09:09→21:47)
[2020-11-03] MEDS: SOLU-MEDROL 40MG VIAL IVP SCH ×2 (09:09→21:47)
[2020-11-03 11:25] VITALS: BP 155/69
[2020-11-03] MEDS: MAGNESIUM 2GM PREMIX 50ML 50 ML IV SCH (15:45)
[2020-11-03 16:59] VITALS: BP 150/56
[2020-11-03 19:50] VITALS: BP 130/52
[2020-11-03] MEDS: AZITHROMYCIN 500MG+NS 250ML IV SCH (21:49)
[2020-11-03] MEDS: 0.9% NACL 250ML 250 ML IV SCH (21:49)
[2020-11-03 23:37] VITALS: BP 149/86
[2020-11-04] VITALS (7 sets, daily range): BP systolic 136–169; BP diastolic 49–97
[2020-11-04] MEDS: IPRATROPIUM 0.5 MG/2.5 ML INH IH SCH ×4 (01:18→18:39)
[2020-11-04] MEDS: ZOSYN 3.375GM +NS 50ML IV SCH ×3 (02:54→18:09)
[2020-11-04] MEDS: 0.9%NACL 50ML 50 ML IV SCH ×3 (02:55→18:09)
[2020-11-04 05:30] LABS: HEMATOCRIT 31.7 % (42-54); MEAN CORPUSCULAR HEMOGLOBIN 29.7 pg (27.0-33.0); MEAN CORPUSCULAR HGB CONC 33.8 g/dL (32.0-36.0); MEAN CORPUSCULAR VOLUME 88.1 fL (79-99); PLATELET COUNT (AUTO) 290 K/uL (130-400); RED CELL DISTRIBUTION WIDTH 14.3 % (11.0-15.5); WHITE BLOOD COUNT (AUTO) 7.4 K/uL (4.8-10.8)
[2020-11-04 05:41] LABS: CREATININE 0.7 mg/dL (0.5-1.5); MAGNESIUM 1.9 mg/dL (1.80-2.40); POTASSIUM 3.3 mmol/L (3.5-5.1)
[2020-11-04 06:19] LABS: LYMPHOCYTES % (MANUAL) 8 % (22-44); MAN.DIFF COMMENT-IMPRESSION MANUAL DIFFERENTIAL; SEGMENTED NEUTROPHILS % 92 % (40-70)
[2020-11-04 06:20] LABS: PLATELET MORPHOLOGY COMMENT ADEQUATE
[2020-11-04] MEDS: ACETAMINOPHEN 325 MG TAB PO PRN (06:48)
[2020-11-04] MEDS: SOLU-MEDROL 40MG VIAL IVP SCH ×2 (08:27→20:01)
[2020-11-04] MEDS: POTASSIUM CHLORIDE 10% ELIXIR 20 MEQ/15 ML UDCUP PO SCH ×2 (08:27→20:01)
[2020-11-04] MEDS: FUROSEMIDE 40MG VIAL IV SCH ×2 (08:27→20:00)
[2020-11-04] MEDS: ASPIRIN 81 MG EC TAB PO SCH (08:28)
[2020-11-04] MEDS: ENOXAPARIN SODIUM 40 MG/0.4 ML SYRINGE SQ SCH (08:28)
[2020-11-04] MEDS: PANTOPRAZOLE 40 MG TAB DR PO SCH (08:28)
[2020-11-04] MEDS: CLOPIDOGREL 75MG TAB PO SCH (08:28)
[2020-11-04] MEDS: GABAPENTIN 300 MG CAPSULE PO SCH ×3 (08:28→20:01)
[2020-11-04] MEDS: BUSPIRONE HCL 5 MG TABLET PO SCH ×2 (08:28→20:01)
[2020-11-04] MEDS ORDERED: LOPERAMIDE HCL 2 MG CAP PO ONE (14:13)
[2020-11-04] MEDS ORDERED: LOPERAMIDE HCL 2 MG CAP PO PRN (14:30)
[2020-11-04] MEDS ORDERED: METRONIDAZOLE 500 MG TABLET ONE (19:58)
[2020-11-04] MEDS: 0.9% NACL 250ML 250 ML IV SCH (20:00)
[2020-11-04] MEDS: AZITHROMYCIN 500MG+NS 250ML IV SCH (20:00)
[2020-11-04] MEDS: METRONIDAZOLE 500 MG TABLET PO SCH (20:01)
[2020-11-05] MEDS: IPRATROPIUM 0.5 MG/2.5 ML INH IH SCH ×5 (00:19→23:26)
[2020-11-05] MEDS: 0.9%NACL 50ML 50 ML IV SCH ×3 (01:49→18:15)
[2020-11-05] MEDS: ZOSYN 3.375GM +NS 50ML IV SCH ×3 (01:49→18:15)
[2020-11-05] MEDS: ACETAMINOPHEN 325 MG TAB PO PRN (01:55)
[2020-11-05 03:41] VITALS: BP 130/49
[2020-11-05 05:25] LABS: BASOPHILS % (AUTO) 0.1 % (0.0-5.0); HEMATOCRIT 33.5 % (42-54); LYMPHOCYTES % (AUTO) 12.8 % (21.0-51.0); MEAN CORPUSCULAR HEMOGLOBIN 29.5 pg (27.0-33.0); MEAN CORPUSCULAR HGB CONC 33.4 g/dL (32.0-36.0); MEAN CORPUSCULAR VOLUME 88.2 fL (79-99); MONOCYTES % (AUTO) 5.6 % (3.0-13.0); NEUTROPHILS % (AUTO) 80.2 % (40.0-77.0); PLATELET COUNT (AUTO) 308 K/uL (130-400); RED CELL DISTRIBUTION WIDTH 14.2 % (11.0-15.5); WHITE BLOOD COUNT (AUTO) 9.2 K/uL (4.8-10.8)
[2020-11-05 05:55] LABS: ALBUMIN 1.9 g/dL (3.5-5.0); BILIRUBIN,TOTAL 0.1 mg/dL (0.2-1.0); CREATININE 0.7 mg/dL (0.5-1.5); POTASSIUM 3.4 mmol/L (3.5-5.1); TOTAL PROTEIN, SERUM 5.3 g/dL (6.0-8.3)
[2020-11-05 08:00] VITALS: BP 147/58
[2020-11-05] MEDS: FUROSEMIDE 40MG VIAL IV SCH ×2 (09:17→19:47)
[2020-11-05] MEDS: SOLU-MEDROL 40MG VIAL IVP SCH ×2 (09:18→19:48)
[2020-11-05] MEDS: POTASSIUM CHLORIDE 10% ELIXIR 20 MEQ/15 ML UDCUP PO SCH ×2 (09:19→19:48)
[2020-11-05] MEDS: METRONIDAZOLE 500 MG TABLET PO SCH ×3 (09:19→19:48)
[2020-11-05] MEDS: ASPIRIN 81 MG EC TAB PO SCH (09:19)
[2020-11-05] MEDS: ENOXAPARIN SODIUM 40 MG/0.4 ML SYRINGE SQ SCH (09:19)
[2020-11-05] MEDS: CLOPIDOGREL 75MG TAB PO SCH (09:20)
[2020-11-05] MEDS: GABAPENTIN 300 MG CAPSULE PO SCH ×3 (09:20→19:49)
[2020-11-05] MEDS: PANTOPRAZOLE 40 MG TAB DR PO SCH (09:20)
[2020-11-05] MEDS: BUSPIRONE HCL 5 MG TABLET PO SCH ×2 (09:20→19:48)
[2020-11-05 11:22] VITALS: BP 143/51
[2020-11-05 17:05] VITALS: BP 146/59
[2020-11-05] MEDS: 0.9% NACL 250ML 250 ML IV SCH (19:47)
[2020-11-05] MEDS: AZITHROMYCIN 500MG+NS 250ML IV SCH (19:47)
[2020-11-05 20:00] VITALS: BP 138/58
[2020-11-05 23:29] VITALS: BP 150/64
[2020-11-06] VITALS (10 sets, daily range): BP systolic 114–178; BP diastolic 49–82
[2020-11-06] MEDS: 0.9%NACL 50ML 50 ML IV SCH ×3 (01:59→18:48)
[2020-11-06] MEDS: ZOSYN 3.375GM +NS 50ML IV SCH ×3 (01:59→18:48)
[2020-11-06 04:26] LABS: HEMATOCRIT 32.7 % (42-54); MEAN CORPUSCULAR HEMOGLOBIN 29.6 pg (27.0-33.0); MEAN CORPUSCULAR HGB CONC 33.6 g/dL (32.0-36.0); MEAN CORPUSCULAR VOLUME 88.1 fL (79-99); RED BLOOD CELL COUNT(AUTO) 3.71 MIL/uL (4.50-6.20); RED CELL DISTRIBUTION WIDTH 14.2 % (11.0-15.5); WHITE BLOOD COUNT (AUTO) 8.7 K/uL (4.8-10.8)
[2020-11-06 04:40] LABS: INR 1.07 (0.85-1.15); PROTHROMBIN TIME 11.6 SEC (9.6-11.6)
[2020-11-06 04:57] LABS: CREATININE 0.7 mg/dL (0.5-1.5); POTASSIUM 3.9 mmol/L (3.5-5.1)
[2020-11-06] MEDS: IPRATROPIUM 0.5 MG/2.5 ML INH IH SCH ×4 (06:53→22:03)
[2020-11-06] MEDS: METRONIDAZOLE 500 MG TABLET PO SCH ×3 (09:00→21:35)
[2020-11-06] MEDS: BUSPIRONE HCL 5 MG TABLET PO SCH ×2 (09:00→21:36)
[2020-11-06] MEDS: CLOPIDOGREL 75MG TAB PO SCH (09:00)
[2020-11-06] MEDS: ASPIRIN 81 MG EC TAB PO SCH (09:00)
[2020-11-06] MEDS: SOLU-MEDROL 40MG VIAL IVP SCH ×2 (09:00→21:37)
[2020-11-06] MEDS: POTASSIUM CHLORIDE 10% ELIXIR 20 MEQ/15 ML UDCUP PO SCH ×2 (09:00→21:36)
[2020-11-06] MEDS: PANTOPRAZOLE 40 MG TAB DR PO SCH (09:00)
[2020-11-06] MEDS: FUROSEMIDE 40MG VIAL IV SCH ×2 (09:00→21:37)
[2020-11-06] MEDS: GABAPENTIN 300 MG CAPSULE PO SCH ×3 (09:00→21:35)
[2020-11-06] MEDS: ENOXAPARIN SODIUM 40 MG/0.4 ML SYRINGE SQ SCH (09:00)
[2020-11-06] MEDS ORDERED: LIDOCAINE HCL 400MG/20ML VIAL ONE (13:34)
[2020-11-06] MEDS ORDERED: IODIXANOL 320 MG/ML 100 ML VIAL ONE (13:34)
[2020-11-06] MEDS ORDERED: HEPARIN 10,000 UNIT/10ML (1,000 UNIT/ML) VIAL ONE (13:34)
[2020-11-06] MEDS ORDERED: FENTANYL CITRATE PF 50 MCG/1 ML 2ML VIAL ONE (13:34)
[2020-11-06] MEDS ORDERED: NITROGLYCERIN 2 MG VIAL IV ONE (13:34)
[2020-11-06] MEDS ORDERED: MIDAZOLAM HCL 1 MG/ML 2ML VIAL ONE (13:34)
[2020-11-06] MEDS ORDERED: ASPIRIN 325MG EC TAB PO ONE (15:31)
[2020-11-06] MEDS ORDERED: CLOPIDOGREL 300MG TAB ONE (15:32)
[2020-11-06] MEDS ORDERED: 0.9%NACL 1000ML 1,000 ML IV SCH (16:00)
[2020-11-06] MEDS: ATORVASTATIN 40 MG TABLET PO SCH (21:36)
[2020-11-06] MEDS: AZITHROMYCIN 500MG+NS 250ML IV SCH (21:36)
[2020-11-06] MEDS: 0.9% NACL 250ML 250 ML IV SCH (21:37)
[2020-11-07] MEDS: ZOSYN 3.375GM +NS 50ML IV SCH ×3 (02:13→18:36)
[2020-11-07] MEDS: 0.9%NACL 50ML 50 ML IV SCH ×3 (02:13→18:36)
[2020-11-07 04:12] VITALS: BP 142/68
[2020-11-07 05:32] LABS: HEMATOCRIT 33.7 % (42-54); MEAN CORPUSCULAR HEMOGLOBIN 29.6 pg (27.0-33.0); MEAN CORPUSCULAR HGB CONC 32.6 g/dL (32.0-36.0); MEAN CORPUSCULAR VOLUME 90.6 fL (79-99); RED BLOOD CELL COUNT(AUTO) 3.72 MIL/uL (4.50-6.20); RED CELL DISTRIBUTION WIDTH 14.5 % (11.0-15.5); WHITE BLOOD COUNT (AUTO) 7.5 K/uL (4.8-10.8)
[2020-11-07 05:43] LABS: CREATININE 0.8 mg/dL (0.5-1.5); POTASSIUM 3.7 mmol/L (3.5-5.1)
[2020-11-07] MEDS: IPRATROPIUM 0.5 MG/2.5 ML INH IH SCH ×4 (06:39→22:56)
[2020-11-07 08:00] VITALS: BP 147/57
[2020-11-07] MEDS: POTASSIUM CHLORIDE 10% ELIXIR 20 MEQ/15 ML UDCUP PO SCH ×2 (09:03→20:54)
[2020-11-07] MEDS: METRONIDAZOLE 500 MG TABLET PO SCH ×3 (09:04→20:54)
[2020-11-07] MEDS: BUSPIRONE HCL 5 MG TABLET PO SCH ×2 (09:04→20:55)
[2020-11-07] MEDS: ASPIRIN 81 MG EC TAB PO SCH (09:04)
[2020-11-07] MEDS: CLOPIDOGREL 75MG TAB PO SCH (09:04)
[2020-11-07] MEDS: GABAPENTIN 300 MG CAPSULE PO SCH ×3 (09:04→20:54)
[2020-11-07] MEDS: PANTOPRAZOLE 40 MG TAB DR PO SCH (09:04)
[2020-11-07] MEDS: SOLU-MEDROL 40MG VIAL IVP SCH ×2 (09:04→20:54)
[2020-11-07] MEDS: FUROSEMIDE 40MG VIAL IV SCH ×2 (09:04→20:54)
[2020-11-07] MEDS: ENOXAPARIN SODIUM 40 MG/0.4 ML SYRINGE SQ SCH (09:05)
[2020-11-07 12:00] VITALS: BP 157/49
[2020-11-07 16:00] VITALS: BP 141/54
[2020-11-07 19:00] VITALS: BP 117/69
[2020-11-07] MEDS: ATORVASTATIN 40 MG TABLET PO SCH (20:54)
[2020-11-07] MEDS: AZITHROMYCIN 500MG+NS 250ML IV SCH (20:55)
[2020-11-07] MEDS: 0.9% NACL 250ML 250 ML IV SCH (20:55)
[2020-11-07 23:46] VITALS: BP 114/61
[2020-11-08] VITALS (12 sets, daily range): BP systolic 124–178; BP diastolic 48–105
[2020-11-08] MEDS: ZOSYN 3.375GM +NS 50ML IV SCH ×3 (02:29→17:24)
[2020-11-08] MEDS: 0.9%NACL 50ML 50 ML IV SCH ×3 (02:29→17:24)
[2020-11-08 05:13] LABS: HEMATOCRIT 30.5 % (42-54); MEAN CORPUSCULAR HEMOGLOBIN 29.6 pg (27.0-33.0); MEAN CORPUSCULAR HGB CONC 33.1 g/dL (32.0-36.0); MEAN CORPUSCULAR VOLUME 89.4 fL (79-99); RED BLOOD CELL COUNT(AUTO) 3.41 MIL/uL (4.50-6.20); RED CELL DISTRIBUTION WIDTH 14.5 % (11.0-15.5); WHITE BLOOD COUNT (AUTO) 10.3 K/uL (4.8-10.8)
[2020-11-08 05:28] LABS: ALBUMIN 2.1 g/dL (3.5-5.0); BILIRUBIN,TOTAL 0.2 mg/dL (0.2-1.0); CREATININE 0.7 mg/dL (0.5-1.5); MAGNESIUM 1.6 mg/dL (1.80-2.40); POTASSIUM 4.4 mmol/L (3.5-5.1); TOTAL PROTEIN, SERUM 5.2 g/dL (6.0-8.3)
[2020-11-08] MEDS: IPRATROPIUM 0.5 MG/2.5 ML INH IH SCH ×4 (07:44→23:09)
[2020-11-08] MEDS: CLOPIDOGREL 75MG TAB PO SCH (09:00)
[2020-11-08] MEDS: BUSPIRONE HCL 5 MG TABLET PO SCH ×2 (09:00→22:11)
[2020-11-08] MEDS: PANTOPRAZOLE 40 MG TAB DR PO SCH (09:00)
[2020-11-08] MEDS: METRONIDAZOLE 500 MG TABLET PO SCH ×3 (09:00→22:11)
[2020-11-08] MEDS: GABAPENTIN 300 MG CAPSULE PO SCH ×3 (09:00→22:12)
[2020-11-08] MEDS: ASPIRIN 81 MG EC TAB PO SCH (09:00)
[2020-11-08] MEDS: POTASSIUM CHLORIDE 10% ELIXIR 20 MEQ/15 ML UDCUP PO SCH ×2 (09:00→22:11)
[2020-11-08] MEDS: ENOXAPARIN SODIUM 40 MG/0.4 ML SYRINGE SQ SCH (09:00)
[2020-11-08] MEDS: FUROSEMIDE 40MG VIAL IV SCH ×2 (09:26→22:11)
[2020-11-08] MEDS: SOLU-MEDROL 40MG VIAL IVP SCH ×2 (09:26→22:12)
[2020-11-08] MEDS ORDERED: HEPARIN 10,000 UNIT/10ML (1,000 UNIT/ML) VIAL ONE (14:46)
[2020-11-08] MEDS ORDERED: NITROGLYCERIN 2 MG VIAL IV ONE (14:46)
[2020-11-08] MEDS ORDERED: IODIXANOL 320 MG/ML 100 ML VIAL ONE (14:46)
[2020-11-08] MEDS ORDERED: SODIUM BICARB 50MEQ 50ML VIAL 50 ML ONE (14:46)
[2020-11-08] MEDS ORDERED: FENTANYL CITRATE PF 50 MCG/1 ML 2ML VIAL ONE (14:47)
[2020-11-08] MEDS ORDERED: MIDAZOLAM HCL 1 MG/ML 2ML VIAL ONE (14:47)
[2020-11-08] MEDS ORDERED: LIDOCAINE HCL 400MG/20ML VIAL ONE (14:47)
[2020-11-08] MEDS ORDERED: MAGNESIUM 2GM PREMIX 50ML 50 ML IV PRN (15:00)
[2020-11-08] MEDS ORDERED: ASPIRIN 81MG CHEW TAB ONE (16:34)
[2020-11-08] MEDS ORDERED: 0.9%NACL 1000ML 1,000 ML IV SCH (17:00)
[2020-11-08] MEDS: 0.9% NACL 250ML 250 ML IV SCH (22:04)
[2020-11-08] MEDS: AZITHROMYCIN 500MG+NS 250ML IV SCH (22:04)
[2020-11-08] MEDS: ATORVASTATIN 40 MG TABLET PO SCH (22:12)
[2020-11-09] MEDS: 0.9%NACL 50ML 50 ML IV SCH ×3 (02:18→16:42)
[2020-11-09] MEDS: ZOSYN 3.375GM +NS 50ML IV SCH ×3 (02:18→16:42)
[2020-11-09 03:41] VITALS: BP 101/59
[2020-11-09 05:06] LABS: MEAN CORPUSCULAR HEMOGLOBIN 29.8 pg (27.0-33.0); MEAN CORPUSCULAR VOLUME 90.2 fL (79-99); RED BLOOD CELL COUNT(AUTO) 3.66 MIL/uL (4.50-6.20); RED CELL DISTRIBUTION WIDTH 14.6 % (11.0-15.5); WHITE BLOOD COUNT (AUTO) 12.5 K/uL (4.8-10.8)
[2020-11-09 05:45] LABS: ALBUMIN 2.3 g/dL (3.5-5.0); BILIRUBIN,TOTAL 0.2 mg/dL (0.2-1.0); CREATININE 0.8 mg/dL (0.5-1.5); POTASSIUM 3.6 mmol/L (3.5-5.1); TOTAL PROTEIN, SERUM 5.6 g/dL (6.0-8.3)
[2020-11-09] MEDS: IPRATROPIUM 0.5 MG/2.5 ML INH IH SCH ×3 (06:49→19:07)
[2020-11-09] MEDS: POTASSIUM CHLORIDE 10% ELIXIR 20 MEQ/15 ML UDCUP PO SCH ×2 (08:25→21:27)
[2020-11-09] MEDS: ENOXAPARIN SODIUM 40 MG/0.4 ML SYRINGE SQ SCH (08:25)
[2020-11-09] MEDS: ASPIRIN 81 MG EC TAB PO SCH (08:26)
[2020-11-09] MEDS: PANTOPRAZOLE 40 MG TAB DR PO SCH (08:26)
[2020-11-09] MEDS: SOLU-MEDROL 40MG VIAL IVP SCH ×2 (08:26→21:27)
[2020-11-09] MEDS: CLOPIDOGREL 75MG TAB PO SCH (08:26)
[2020-11-09] MEDS: FUROSEMIDE 40MG VIAL IV SCH ×2 (08:26→21:28)
[2020-11-09] MEDS: BUSPIRONE HCL 5 MG TABLET PO SCH ×2 (08:29→21:27)
[2020-11-09] MEDS: METRONIDAZOLE 500 MG TABLET PO SCH ×3 (08:30→21:27)
[2020-11-09] MEDS: GABAPENTIN 300 MG CAPSULE PO SCH ×3 (08:30→21:28)
[2020-11-09 08:35] VITALS: BP 110/63
[2020-11-09 11:07] VITALS: BP 136/47
[2020-11-09 15:56] VITALS: BP 121/62
[2020-11-09 21:16] VITALS: BP 129/50
[2020-11-09] MEDS: ATORVASTATIN 40 MG TABLET PO SCH (21:27)
[2020-11-09] MEDS: AZITHROMYCIN 500MG+NS 250ML IV SCH (21:28)
[2020-11-09] MEDS: 0.9% NACL 250ML 250 ML IV SCH (21:28)
[2020-11-10 00:28] VITALS: BP 117/57
[2020-11-10] MEDS: ZOSYN 3.375GM +NS 50ML IV SCH ×2 (02:45→11:11)
[2020-11-10] MEDS: 0.9%NACL 50ML 50 ML IV SCH ×2 (02:46→11:11)
[2020-11-10] MEDS: ACETAMINOPHEN 325 MG TAB PO PRN (03:54)
[2020-11-10 04:29] VITALS: BP 140/57
[2020-11-10 05:13] LABS: MEAN CORPUSCULAR HEMOGLOBIN 29.9 pg (27.0-33.0); MEAN CORPUSCULAR HGB CONC 32.9 g/dL (32.0-36.0); MEAN CORPUSCULAR VOLUME 90.9 fL (79-99); RED BLOOD CELL COUNT(AUTO) 3.41 MIL/uL (4.50-6.20); RED CELL DISTRIBUTION WIDTH 14.6 % (11.0-15.5); WHITE BLOOD COUNT (AUTO) 11.8 K/uL (4.8-10.8)
[2020-11-10 05:33] LABS: ALBUMIN 2.2 g/dL (3.5-5.0); BILIRUBIN,TOTAL 0.2 mg/dL (0.2-1.0); CREATININE 0.8 mg/dL (0.5-1.5); POTASSIUM 3.9 mmol/L (3.5-5.1); TOTAL PROTEIN, SERUM 5.3 g/dL (6.0-8.3)
[2020-11-10] MEDS: IPRATROPIUM 0.5 MG/2.5 ML INH IH SCH ×3 (07:54→12:31)
[2020-11-10 08:00] VITALS: BP 116/45
[2020-11-10] MEDS: ASPIRIN 81 MG EC TAB PO SCH (08:37)
[2020-11-10] MEDS: POTASSIUM CHLORIDE 10% ELIXIR 20 MEQ/15 ML UDCUP PO SCH (08:37)
[2020-11-10] MEDS: PANTOPRAZOLE 40 MG TAB DR PO SCH (08:38)
[2020-11-10] MEDS: METRONIDAZOLE 500 MG TABLET PO SCH ×2 (08:38→13:25)
[2020-11-10] MEDS: CLOPIDOGREL 75MG TAB PO SCH (08:38)
[2020-11-10] MEDS: BUSPIRONE HCL 5 MG TABLET PO SCH (08:38)
[2020-11-10] MEDS: GABAPENTIN 300 MG CAPSULE PO SCH ×2 (08:38→13:25)
[2020-11-10] MEDS: SOLU-MEDROL 40MG VIAL IVP SCH (08:39)
[2020-11-10] MEDS: FUROSEMIDE 40MG VIAL IV SCH (08:39)
[2020-11-10] MEDS: ENOXAPARIN SODIUM 40 MG/0.4 ML SYRINGE SQ SCH (08:40)
[2020-11-10 11:46] VITALS: BP 104/46
[2020-11-10 15:53] VITALS: BP 110/47
== END 2020-11-10 17:30 | disposition home health service (06) | DRG 252 ==
LOC: EDH 16:06 → EDHIP 18:15 → 3BH 11-01 02:48
PROVIDERS: ADMIT Internal Medicine Nephrology; ATTEND Internal Medicine Nephrology
PROC: 047C3DZ Dilation of Right Common Iliac Artery with Intraluminal Device, Percutaneous Approach (ICD-10-PCS; principal; 2020-11-06)
PROC: 047K3Z1 Dilation of Right Femoral Artery using Drug-Coated Balloon, Percutaneous Approach (ICD-10-PCS; 2020-11-06)
PROC: B41F1ZZ Fluoroscopy of Right Lower Extremity Arteries using Low Osmolar Contrast (ICD-10-PCS; 2020-11-06)
PROC: B4101ZZ Fluoroscopy of Abdominal Aorta using Low Osmolar Contrast (ICD-10-PCS; 2020-11-06)
PROC: B41G1ZZ Fluoroscopy of Left Lower Extremity Arteries using Low Osmolar Contrast (ICD-10-PCS; 2020-11-08)
PROC: B41C1ZZ Fluoroscopy of Pelvic Arteries using Low Osmolar Contrast (ICD-10-PCS; 2020-11-08)
DX: T82.856A Stenosis of peripheral vascular stent, initial encounter (principal); I50.33 Acute on chronic diastolic (congestive) heart failure; J44.1 Chronic obstructive pulmonary disease with (acute) exacerbation; L03.115 Cellulitis of right lower limb; L03.116 Cellulitis of left lower limb; I48.92 Unspecified atrial flutter; G81.90 Hemiplegia, unspecified affecting unspecified side; L97.819 Non-pressure chronic ulcer of other part of right lower leg with unspecified severity; L97.829 Non-pressure chronic ulcer of other part of left lower leg with unspecified severity; E11.51 Type 2 diabetes mellitus with diabetic peripheral angiopathy without gangrene; Z20.822 Contact with and (suspected) exposure to COVID-19; I73.9 Peripheral vascular disease, unspecified; E78.5 Hyperlipidemia, unspecified; E83.42 Hypomagnesemia; E87.6 Hypokalemia; I44.1 Atrioventricular block, second degree; F17.210 Nicotine dependence, cigarettes, uncomplicated; I11.0 Hypertensive heart disease with heart failure; I87.2 Venous insufficiency (chronic) (peripheral); I87.8 Other specified disorders of veins; E11.621 Type 2 diabetes mellitus with foot ulcer; L97.529 Non-pressure chronic ulcer of other part of left foot with unspecified severity; D64.9 Anemia, unspecified; B35.3 Tinea pedis; I77.1 Stricture of artery; Y83.8 Other surgical procedures as the cause of abnormal reaction of the patient, or of later complication, without mention of misadventure at the time of the procedure; Y92.89 Other specified places as the place of occurrence of the external cause; N19 Unspecified kidney failure; I25.2 Old myocardial infarction; Z79.82 Long term (current) use of aspirin; Z79.01 Long term (current) use of anticoagulants; Z95.820 Peripheral vascular angioplasty status with implants and grafts; Z91.14 Patient's other noncompliance with medication regimen; Z91.19 Patient's noncompliance with other medical treatment and regimen
CPT/HCPCS: 36415; 37221; 37224; 71045; 75635; 75710; 75716; 80048; 80053; 82550; 83605; 83630; 83735; 83874; 83880; 84100; 84443; 84484; 84550; 85025; 85027; 85610; 86140; 87040; 87324; 87635; 87804; 87880; 93005; 94640; 94664; 97039; 99156; 99157; C1760; C1769; C1893; C1894; C9803; G0378; J0456; J0696; J1644; J1650; J1940; J2250; J2543; J2920; J3010; J3475; J3480; J3490; J7050; Q9967

== ENCOUNTER → 2022-08-08 | Outpatient (CLI) | payer MEDICARE ==
[~2022-08-08] MED LIST changes: -AZIT500T4 PO; -GABA300S PO; +GABA300S3 PO; -HYDR-4060 PO; +NITR0.4T50 SL
== END | disposition home or self-care (01) ==
LOC: SHCH 09:58
PROVIDERS: ATTEND Internal Medicine Cardiovascular Disease
DX: I65.23 Occlusion and stenosis of bilateral carotid arteries (principal); I25.10 Atherosclerotic heart disease of native coronary artery without angina pectoris
CPT/HCPCS: 93880